=== PATIENT | female | born 1995 | race Caucasian/White ===

== ENCOUNTER 2020-12-16 00:33 | Emergency (ER) | payer SELFPAY ==
[~2020-12-16] VITALS: Ht 162.6 cm; Wt 100.0 kg
--- NOTE | 2020-12-16 01:13 | PHYS DOC ---
General Adult EDM: Chief Complaint: WRIST PAIN HPI: HPI: Patient is a 24 year old female presents with the chief complaint of right wrist pain. Patient denies any injury. States tonight at work she had 10/10 right wrist pain. She states swelling and bruising was present. Patients pain with ROM. States at times hand goes numb-- numbness radiates up left arm. States she took tylneol. At time of exam patient texting on phone upon entry into room. States bruising has resolved--- no bruising noted. No deformities. Full range of motion of right hand/wrist. Wrist is not warm to touch. Patient right hand dominate. Review of Systems: Review of Systems: Constitutional: Denies fever or chills. [] Eyes: Denies change in visual acuity. [] HENT: Denies nasal congestion or sore throat. [] Respiratory: Denies cough or shortness of breath. [] Cardiovascular: Denies chest pain or edema. [] GI: Denies abdominal pain, nausea, vomiting, bloody stools or diarrhea. [] : Denies dysuria. [] Musculoskeletal: Denies back pain or joint pain. [positive wrist pain] Integument: Denies rash. [] Neurologic: Denies headache, focal weakness or sensory changes. [] Endocrine: Denies polyuria or polydipsia. [] Lymphatic: Denies swollen glands. [] Psychiatric: Denies depression or anxiety. [] Heart Score: C/O Chest Pain: N/A Risk Factors: Risk Factors: DM, Current or recent (<one month) smoker, HTN, HLP, family history of CAD, obesity. Risk Scores: Score 0 - 3: 2.5% MACE over next 6 weeks - Discharge Home Score 4 - 6: 20.3% MACE over next 6 weeks - Admit for Clinical Observation Score 7 - 10: 72.7% MACE over next 6 weeks - Early Invasive Strategies Allergies: Allergies: Allergies Coded Allergies Type Severity Reaction Last Updated Verified aspirin Allergy Unknown 12/16/20 Yes Physical Exam: PE: Constitutional: Well developed, well nourished, no acute distress, non-toxic appearance. [] HENT: Normocephalic, atraumatic, bilateral external ears normal, oropharynx moist, no oral exudates, nose normal. [] Eyes: PERRLA, EOMI, conjunctiva normal, no discharge. [] Neck: Normal range of motion, no tenderness, supple, no stridor. [] Cardiovascular:Heart rate regular rhythm, no murmur [] Lungs & Thorax: Bilateral breath sounds clear to auscultation [] Abdomen: Bowel sounds normal, soft, no tenderness, no masses, no pulsatile masses. [] Skin: Warm, dry, no erythema, no rash. [] Back: No tenderness, no CVA tenderness. [] Extremities: No tenderness, no cyanosis, no clubbing, ROM intact, no edema. [pain with ROM right wrist, no deformities of right wrist, patient c/o pain with palpation of wrist] Neurologic: Alert and oriented X 3, normal motor function, normal sensory function, no focal deficits noted. [] Psychologic: Affect normal, judgement normal, mood normal. [] Current Patient Data: Labs: Laboratory Tests Test 12/16/20 00:54 POC Urine HCG, Qualitative Hcg negative (Negative) EKG: EKG: [] Radiology/Procedures: Radiology/Procedures: [] Course & Med Decision Making: Course & Med Decision Making Pertinent Labs and Imaging studies reviewed. (See chart for details) []did not perform xray due to no trauma or swelling. Patient has full ROM of wrist. Pain improved from tyelenol taken @ 1900hrs. Right wrist placed in splint. Advised to continue tylenol. Advised to follow up with PCP in 3-5 days if pain continues. Barb Disclaimer: Barb Disclaimer: This electronic medical record was generated, in whole or in part, using a voice recognition dictation system. Departure Departure Impression: Primary Impression: Wrist pain Additional Impression: Carpal tunnel syndrome of right wrist Disposition: 01 DC HOME SELF CARE/HOMELESS Condition: STABLE Patient Instructions: Carpal Tunnel Syndrome, Wrist Pain ANEESH HERNANDEZ I DO Dec 16, 2020 01:13
[2020-12-16 01:22] VITALS: BP 147/91
== END 2020-12-16 01:18 | disposition home or self-care (01) ==
LOC: ER 00:33
DX: G56.01 Carpal tunnel syndrome, right upper limb (principal); M25.531 Pain in right wrist; Z88.6 Allergy status to analgesic agent
CPT/HCPCS: 29125; 81025; 99283